=== PATIENT | female | born 1960 | race Caucasian/White ===

== ENCOUNTER 2020-09-19 09:36 | Observation (INO) ==
[2020-09-19] MEDS ORDERED: Aspirin 81 MG TAB.CHEW PO ONE (09:44)
[2020-09-19 10:10] LABS: Basophils # 0.1 K/mcL (0.0-0.2); Basophils % 0.9 %; Eosinophils # 0.1 K/mcL (0.0-0.6); Eosinophils % 2.5 %; Hemoglobin 14.3 g/dL (11.5-15.4); Immature Granulocytes % 0.2 % (0-4); Lymphocytes # 1.7 K/mcL (0.6-4.6); Lymphocytes % 30.8 %; Mean Corpuscular HGB Conc 33.3 g/dL (31.6-35.5); Mean Corpuscular Hemoglobin 29.1 pg (28.0-33.3); Mean Corpuscular Volume 87.4 fL (83.0-100.0); Mean Platelet Volume 10.1 fL (9.4-12.4); Monocytes # 0.5 K/mcL (0.0-1.3); Neutrophils # 3.2 K/mcL (1.6-8.9); Platelet Count 253 K/mcL (140-400); Red Blood Count 4.92 M/mcL (3.82-4.97); Red Cell Distribution Width 12.4 % (11.5-14.5); Segmented Neutrophils % 57.6 %; White Blood Count 5.6 K/mcL (4.3-11.1)
[2020-09-19 10:31] LABS: BUN/Creatinine Ratio 16 (6-26); Blood Urea Nitrogen 12 mg/dL (8-23); Calcium 9.4 mg/dL (8.6-10.3); Carbon Dioxide 23 mEq/L (23-29); Chloride 107 mEq/L (98-107); Glucose 112 mg/dL (70-105); Osmolality,Calculated 287 (280-300); Potassium 4.2 mEq/L (3.5-5.1); Sodium 138 mEq/L (136-145); Troponin I < 0.03 ng/mL (< 0.04); eGFR For African Americans > 60 (> 60); eGFR For Non-African Americans > 60 (> 60)
[2020-09-19] MEDS ORDERED: Nitroglycerin 1 INCH/GM PACKET TP ONE (11:15)
[2020-09-19] MEDS ORDERED: Naloxone 0.4 MG/ML INJ IVP PRN (13:42)
[2020-09-19] MEDS ORDERED: Nitroglycerin 0.4 MG TAB.SUBL SL PRN (14:53)
[2020-09-19] MEDS ORDERED: *HR* HYDROcodone/Acet 5/325 mg TABLET PO PRN (15:42)
[2020-09-20 04:34] LABS: Estimated Average Glucose 128 mg/dl; Hemoglobin A1C 6.1 %
[2020-09-20 04:41] LABS: Chol/HDL Ratio 5.2 (0-4.9)
[2020-09-20] MEDS ORDERED: BuPROPion XL (24 HR) 150 MG TABLET PO SCH (09:00)
[2020-09-20] MEDS ORDERED: atenoloL 25 MG TABLET PO SCH (09:00)
[2020-09-20] MEDS ORDERED: Regadenoson 0.4 MG/5 ML SYRINGE IVP ONE (13:21)
[2020-09-20] MEDS: Regadenoson 0.4 MG/5 ML SYRINGE IVP ONE ×3 (13:41→13:44)
[2020-09-21] MEDS ORDERED: *HR* Enoxaparin 40 MG/0.4 ML SYRINGE SQ SCH (07:00)
[2020-09-21 11:33] VITALS: BP 147/79
== END 2020-09-20 19:40 | disposition home or self-care (01) ==
LOC: EMEROOARM 09:36 → 3ANU 09:36 → SUATTDRO 13:57 → 3ANU 15:31
PROVIDERS: ADMIT Internal Medicine; ATTEND Pharmacist